=== PATIENT | male | born 1955 | race Two or more races ===

== ENCOUNTER 2022-02-07 05:29 | Emergency (ER) | payer OTHER ==
[~2022-02-07] VITALS: Ht 182.9 cm; Wt 106.1 kg
[2022-02-07] MEDS ORDERED: ACETAMIN-CODE12.5 ML PO (07:00)
[2022-02-07] MEDS ORDERED: IBUPROFEN600 MG PO (07:53)
[2022-02-07] MEDS ORDERED: FLOMAX0.4 MG PO (07:53)
[2022-02-07 08:07] VITALS: BP 174/98
== END 2022-02-07 08:09 | disposition home or self-care (01) ==
LOC: FSED 06:09
DX: R10.9 Unspecified abdominal pain (principal); N20.2 Calculus of kidney with calculus of ureter; R11.0 Nausea
CPT/HCPCS: 74176; 80053; 81003; 85025; 99284